=== PATIENT | male | born 1955 | race Caucasian/White ===

== ENCOUNTER 2020-04-20 11:07 | Inpatient (IN) ==
[2020-04-20] MEDS ORDERED: Ipratropium/Albuterol Neb 3 ML IH ONE (11:30)
[2020-04-20] MEDS ORDERED: methylPREDNISolone 125 MG/2 ML VIAL IVP ONE (11:30)
[2020-04-20 12:19] LABS: Basophils # 0.1 K/mcL (0.0-0.2); Basophils % 0.5 %; Eosinophils # 1.4 K/mcL (0.0-0.6); Eosinophils % 11.4 %; Hematocrit 44.5 % (37.5-50.1); Hemoglobin 14.7 g/dL (12.9-16.9); Immature Granulocytes % 0.3 % (0-4); Lymphocytes # 2.1 K/mcL (0.6-4.6); Mean Corpuscular Hemoglobin 29.6 pg (28.0-33.3); Mean Corpuscular Volume 89.5 fL (83.0-100.0); Monocytes % 8.4 %; Neutrophils # 7.3 K/mcL (1.6-8.9); Platelet Count 221 K/mcL (140-400); Red Blood Count 4.97 M/mcL (4.19-5.50); Red Cell Distribution Width 12.8 % (11.5-14.5); Segmented Neutrophils % 61.4 %; White Blood Count 11.9 K/mcL (4.3-11.1)
[2020-04-20 12:23] LABS: BUN/Creatinine Ratio 18 (6-26); Blood Urea Nitrogen 17 mg/dL (8-23); Calcium 9.4 mg/dL (8.6-10.3); Carbon Dioxide 31 mEq/L (23-29); Chloride 100 mEq/L (98-107); Glucose 208 mg/dL (70-105); Osmolality,Calculated 296 (280-300); Potassium 3.6 mEq/L (3.5-5.1); Sodium 139 mEq/L (136-145); eGFR For African Americans > 60 (> 60); eGFR For Non-African Americans > 60 (> 60)
[2020-04-20 12:24] LABS: Troponin I < 0.03 ng/mL (< 0.04)
[2020-04-20] MEDS ORDERED: Albuterol 2.5 MG/3 ML NEBULIZER IH ONE (13:39)
[2020-04-20] MEDS ORDERED: *HR* Dextrose 50 % in Water (Vial) 50 ML VIAL IVP PRN (15:01)
[2020-04-20] MEDS ORDERED: Dextrose Gel 15 GM/37.5 ML TUBE PO PRN ×2 (15:01)
[2020-04-20] MEDS ORDERED: D5% in Water 1,000 ML IVC PRN (15:01)
[2020-04-20] MEDS ORDERED: Naloxone 0.4 MG/ML INJ IVP PRN (15:02)
[2020-04-20] MEDS ORDERED: Acetaminophen 325 MG TABLET PO PRN (15:02)
[2020-04-20] MEDS: Azithromycin 500 MG in 0.9 % Sodium Chloride 250 ML IVPB SCH (15:24)
[2020-04-20 16:08] LABS: ABG Base Excess 5 mEq/L (-2 to 3); ABG HCO3 32 mEq/L (21-27); ABG Oxygen Saturation 89 % (95-98); ABG PCO2 51 mmHg (35-45); ABG PO2 58 mmHg (85-104); ABG TCO2 33 mEq/L (20-26)
[2020-04-20] MEDS: Insulin LISPRO 300 UNITS/3 ML VIAL SUBQ SCH ×2 (16:16→20:14)
[2020-04-20] MEDS: carvediloL 6.25 MG TABLET PO SCH (16:17)
[2020-04-20] MEDS: Ipratropium/Albuterol Neb 3 ML IH SCH ×3 (16:22→23:09)
[2020-04-20] MEDS: Budesonide/Formoterol 160/4.5 1 PUFF INH IH SCH (20:11)
[2020-04-20] MEDS: *HR* Heparin 5,000 UNIT/ML VIAL SQ SCH (20:14)
[2020-04-21] MEDS: Ipratropium/Albuterol Neb 3 ML IH SCH ×7 (04:11→23:57)
[2020-04-21] MEDS: *HR* Heparin 5,000 UNIT/ML VIAL SQ SCH ×3 (05:26→20:07)
[2020-04-21 06:07] LABS: Hematocrit 42.7 % (37.5-50.1); Hemoglobin 14.3 g/dL (12.9-16.9); Mean Corpuscular HGB Conc 33.5 g/dL (31.6-35.5); Mean Corpuscular Hemoglobin 30.2 pg (28.0-33.3); Mean Corpuscular Volume 90.1 fL (83.0-100.0); Mean Platelet Volume 10.4 fL (9.4-12.4); Platelet Count 228 K/mcL (140-400); Red Blood Count 4.74 M/mcL (4.19-5.50); Red Cell Distribution Width 12.9 % (11.5-14.5); White Blood Count 13.1 K/mcL (4.3-11.1)
[2020-04-21 06:25] LABS: Chol/HDL Ratio 3.9 (0-4.9)
[2020-04-21 06:26] LABS: BUN/Creatinine Ratio 23 (6-26); Blood Urea Nitrogen 26 mg/dL (8-23); Calcium 9.3 mg/dL (8.6-10.3); Carbon Dioxide 29 mEq/L (23-29); Chloride 100 mEq/L (98-107); Glucose 224 mg/dL (70-105); Magnesium 2.1 mg/dL (1.6-2.6); Osmolality,Calculated 298 (280-300); Potassium 3.5 mEq/L (3.5-5.1); Sodium 138 mEq/L (136-145); eGFR For African Americans > 60 (> 60); eGFR For Non-African Americans > 60 (> 60)
[2020-04-21] MEDS: Budesonide/Formoterol 160/4.5 1 PUFF INH IH SCH ×2 (08:05→20:09)
[2020-04-21] MEDS: Tiotropium 10 INH DOSE IH SCH (08:45)
[2020-04-21] MEDS: methylPREDNISolone 125 MG/2 ML VIAL IVP SCH ×3 (08:49→20:07)
[2020-04-21] MEDS: amLODIPine 5 MG TABLET PO SCH (08:51)
[2020-04-21] MEDS: hydroCHLOROthiazide 25 MG TABLET PO SCH (08:51)
[2020-04-21] MEDS: carvediloL 6.25 MG TABLET PO SCH ×2 (08:51→16:54)
[2020-04-21] MEDS: Aspirin Enteric Coated 81 MG Tablet PO SCH (08:51)
[2020-04-21] MEDS: Insulin LISPRO 300 UNITS/3 ML VIAL SUBQ SCH ×4 (08:51→20:08)
[2020-04-21 09:49] LABS: Estimated Average Glucose 217 mg/dl; Hemoglobin A1C 9.2 %
[2020-04-21] MEDS: Azithromycin 500 MG in 0.9 % Sodium Chloride 250 ML IVPB SCH (16:55)
[2020-04-22 01:55] LABS: Hematocrit 41.2 % (37.5-50.1); Hemoglobin 13.8 g/dL (12.9-16.9); Mean Corpuscular HGB Conc 33.5 g/dL (31.6-35.5); Mean Corpuscular Hemoglobin 30.4 pg (28.0-33.3); Mean Corpuscular Volume 90.7 fL (83.0-100.0); Mean Platelet Volume 10.7 fL (9.4-12.4); Platelet Count 227 K/mcL (140-400); Red Blood Count 4.54 M/mcL (4.19-5.50); Red Cell Distribution Width 12.8 % (11.5-14.5); White Blood Count 12.9 K/mcL (4.3-11.1)
[2020-04-22 02:16] LABS: BUN/Creatinine Ratio 30 (6-26); Blood Urea Nitrogen 32 mg/dL (8-23); Carbon Dioxide 28 mEq/L (23-29); Chloride 98 mEq/L (98-107); Glucose 283 mg/dL (70-105); Osmolality,Calculated 297 (280-300); Sodium 135 mEq/L (136-145); eGFR For African Americans > 60 (> 60); eGFR For Non-African Americans > 60 (> 60)
[2020-04-22] MEDS: Ipratropium/Albuterol Neb 3 ML IH SCH ×5 (03:57→20:19)
[2020-04-22] MEDS: *HR* Heparin 5,000 UNIT/ML VIAL SQ SCH ×3 (05:36→23:20)
[2020-04-22] MEDS: Tiotropium 10 INH DOSE IH SCH (07:21)
[2020-04-22] MEDS: Aspirin Enteric Coated 81 MG Tablet PO SCH (09:16)
[2020-04-22] MEDS: methylPREDNISolone 125 MG/2 ML VIAL IVP SCH ×2 (09:16→20:01)
[2020-04-22] MEDS: hydroCHLOROthiazide 25 MG TABLET PO SCH (09:16)
[2020-04-22] MEDS: carvediloL 6.25 MG TABLET PO SCH ×2 (09:17→17:41)
[2020-04-22] MEDS: amLODIPine 5 MG TABLET PO SCH (09:17)
[2020-04-22] MEDS: Insulin LISPRO 300 UNITS/3 ML VIAL SUBQ SCH ×4 (09:17→20:00)
[2020-04-22] MEDS: Budesonide/Formoterol 160/4.5 1 PUFF INH IH SCH ×2 (11:17→20:19)
[2020-04-22] MEDS: Azithromycin 500 MG in 0.9 % Sodium Chloride 250 ML IVPB SCH (14:59)
[2020-04-23] MEDS: Ipratropium/Albuterol Neb 3 ML IH SCH ×7 (00:17→23:38)
[2020-04-23 04:18] LABS: Hemoglobin 13.3 g/dL (12.9-16.9); Mean Corpuscular HGB Conc 34.1 g/dL (31.6-35.5); Mean Corpuscular Hemoglobin 30.2 pg (28.0-33.3); Mean Corpuscular Volume 88.6 fL (83.0-100.0); Mean Platelet Volume 10.7 fL (9.4-12.4); Platelet Count 202 K/mcL (140-400); Red Cell Distribution Width 12.4 % (11.5-14.5); White Blood Count 9.8 K/mcL (4.3-11.1)
[2020-04-23 04:33] LABS: BUN/Creatinine Ratio 26 (6-26); Blood Urea Nitrogen 28 mg/dL (8-23); Calcium 8.8 mg/dL (8.6-10.3); Carbon Dioxide 28 mEq/L (23-29); Chloride 99 mEq/L (98-107); Glucose 323 mg/dL (70-105); Osmolality,Calculated 296 (280-300); Potassium 3.9 mEq/L (3.5-5.1); Sodium 134 mEq/L (136-145); eGFR For African Americans > 60 (> 60); eGFR For Non-African Americans > 60 (> 60)
[2020-04-23] MEDS: *HR* Heparin 5,000 UNIT/ML VIAL SQ SCH ×3 (05:26→20:14)
[2020-04-23] MEDS: Budesonide/Formoterol 160/4.5 1 PUFF INH IH SCH ×2 (07:25→22:18)
[2020-04-23] MEDS: Tiotropium 10 INH DOSE IH SCH (07:37)
[2020-04-23] MEDS: amLODIPine 5 MG TABLET PO SCH (07:47)
[2020-04-23] MEDS: Aspirin Enteric Coated 81 MG Tablet PO SCH (07:47)
[2020-04-23] MEDS: hydroCHLOROthiazide 25 MG TABLET PO SCH (07:47)
[2020-04-23] MEDS: carvediloL 6.25 MG TABLET PO SCH ×2 (07:47→17:10)
[2020-04-23] MEDS: methylPREDNISolone 125 MG/2 ML VIAL IVP SCH (07:52)
[2020-04-23] MEDS: Insulin LISPRO 300 UNITS/3 ML VIAL SUBQ SCH ×4 (07:55→20:15)
[2020-04-23] MEDS: Azithromycin 500 MG in 0.9 % Sodium Chloride 250 ML IVPB SCH (14:17)
[2020-04-24] MEDS: Ipratropium/Albuterol Neb 3 ML IH SCH ×6 (04:01→23:48)
[2020-04-24] MEDS: *HR* Heparin 5,000 UNIT/ML VIAL SQ SCH ×3 (05:33→20:22)
[2020-04-24 06:27] LABS: Hematocrit 39.7 % (37.5-50.1); Mean Corpuscular HGB Conc 32.7 g/dL (31.6-35.5); Mean Corpuscular Hemoglobin 29.5 pg (28.0-33.3); Mean Platelet Volume 10.5 fL (9.4-12.4); Platelet Count 187 K/mcL (140-400); Red Blood Count 4.41 M/mcL (4.19-5.50); Red Cell Distribution Width 12.7 % (11.5-14.5); White Blood Count 10.1 K/mcL (4.3-11.1)
[2020-04-24 06:47] LABS: BUN/Creatinine Ratio 33 (6-26); Blood Urea Nitrogen 31 mg/dL (8-23); Calcium 8.8 mg/dL (8.6-10.3); Carbon Dioxide 30 mEq/L (23-29); Chloride 103 mEq/L (98-107); Glucose 191 mg/dL (70-105); Osmolality,Calculated 300 (280-300); Potassium 3.6 mEq/L (3.5-5.1); Sodium 139 mEq/L (136-145); eGFR For African Americans > 60 (> 60); eGFR For Non-African Americans > 60 (> 60)
[2020-04-24] MEDS: carvediloL 6.25 MG TABLET PO SCH ×2 (07:46→17:31)
[2020-04-24] MEDS: amLODIPine 5 MG TABLET PO SCH (07:46)
[2020-04-24] MEDS: hydroCHLOROthiazide 25 MG TABLET PO SCH (07:46)
[2020-04-24] MEDS: methylPREDNISolone 125 MG/2 ML VIAL IVP SCH (07:47)
[2020-04-24] MEDS: Insulin LISPRO 300 UNITS/3 ML VIAL SUBQ SCH ×4 (07:47→20:22)
[2020-04-24] MEDS: Aspirin Enteric Coated 81 MG Tablet PO SCH (07:47)
[2020-04-24] MEDS: Tiotropium 10 INH DOSE IH SCH (08:10)
[2020-04-24] MEDS: Budesonide/Formoterol 160/4.5 1 PUFF INH IH SCH ×2 (08:11→19:23)
[2020-04-24] MEDS ORDERED: Azithromycin 250 MG TABLET PO SCH (15:00)
[2020-04-25] MEDS: Ipratropium/Albuterol Neb 3 ML IH SCH ×3 (03:59→10:59)
[2020-04-25] MEDS: *HR* Heparin 5,000 UNIT/ML VIAL SQ SCH (05:12)
[2020-04-25 06:17] VITALS: BP 130/86
[2020-04-25] MEDS: Budesonide/Formoterol 160/4.5 1 PUFF INH IH SCH (07:36)
[2020-04-25] MEDS: Tiotropium 10 INH DOSE IH SCH (07:38)
[2020-04-25] MEDS: Insulin LISPRO 300 UNITS/3 ML VIAL SUBQ SCH (08:11)
[2020-04-25] MEDS: methylPREDNISolone 125 MG/2 ML VIAL IVP SCH (08:30)
[2020-04-25] MEDS: hydroCHLOROthiazide 25 MG TABLET PO SCH (08:30)
[2020-04-25] MEDS: amLODIPine 5 MG TABLET PO SCH (08:30)
[2020-04-25] MEDS: carvediloL 6.25 MG TABLET PO SCH (08:30)
[2020-04-25] MEDS: Aspirin Enteric Coated 81 MG Tablet PO SCH (08:30)
== END 2020-04-25 11:48 | disposition home or self-care (01) | DRG 191 ==
LOC: 3BNU 11:07 → EMEROOARM 11:07 → 3BNU 14:25
PROVIDERS: ADMIT Student in an Organized Health Care Education/Training Program; ATTEND Student in an Organized Health Care Education/Training Program